=== PATIENT | male | born 1990 | race Caucasian/White ===

== ENCOUNTER 2021-09-01 10:25 | Day surgery (SDC) | payer BC ==
[2021-09-01] MEDS ORDERED: BUPIVACAINE 0.5% VIAL IJ ONE (10:26)
[2021-09-01] MEDS ORDERED: Depo-Medrol 40 MG/ML IM ONE (10:26)
[2021-09-01] MEDS ORDERED: Lactated Ringers 1,000 ML IV ONE (12:04)
[2021-09-01] MEDS ORDERED: DIPRIVAN 200 MG/20 ML IV ONE (12:07)
--- NOTE | 2021-09-01 14:02 | XRAY ---
Indication: Bilateral L4-S1 MBB. Intraoperative fluoroscopy provided for 8 seconds. Single digital spot image submitted for interpretation demonstrates posterior needle tips projecting over the expected left and right L4-S1 nerve roots. Correlate with intraoperative findings/report.
--- NOTE | 2021-09-01 14:41 | XRAY ---
8 seconds fluoroscopy time in surgery for bilateral L4-S1 MBB
== END 2021-09-01 12:32 | disposition home or self-care (01) ==
LOC: SDC-PAIN 10:25
PROVIDERS: ATTEND Psychiatry & Neurology Pain Medicine
DX: M47.816 Spondylosis without myelopathy or radiculopathy, lumbar region (principal); Z79.899 Other long term (current) drug therapy
CPT/HCPCS: 64493; 64494; 72020; 77002; J1030; J2704; Q9966

== ENCOUNTER 2021-09-29 13:23 | Day surgery (SDC) | payer BC ==
[2021-09-29] MEDS ORDERED: Depo-Medrol 40 MG/ML IM ONE (13:24)
[2021-09-29] MEDS ORDERED: Sodium Chloride 0.9(Preservative Free) 10 ML IJ ONE (13:24)
[2021-09-29] MEDS ORDERED: DIPRIVAN 200 MG/20 ML IV ONE (16:16)
[2021-09-29] MEDS ORDERED: Lactated Ringers 1,000 ML IV ONE (16:24)
--- NOTE | 2021-09-29 16:44 | XRAY ---
Indication: Right L4-S1 transforaminal JAMIL. Intraoperative fluoroscopy provided for 34 seconds. 3 digital spot images submitted for interpretation demonstrates posterior needle tips projecting over the expected right L4 and L5 nerve roots. Small amount of contrast injected for needle tip placement. Correlate with intraoperative findings/report.
--- NOTE | 2021-09-29 17:01 | XRAY ---
34 seconds fluoroscopy time in surgery for right L4-S1 transforaminal JAMIL.
== END 2021-09-29 16:30 | disposition home or self-care (01) ==
LOC: SDC-PAIN 13:23
PROVIDERS: ATTEND Psychiatry & Neurology Pain Medicine
DX: M54.16 Radiculopathy, lumbar region (principal); Z79.899 Other long term (current) drug therapy
CPT/HCPCS: 64483; 64484; 72100; 77003; J1030; J2704

== ENCOUNTER 2023-04-19 06:47 | Day surgery (SDC) | payer BC ==
[2023-04-19] MEDS ORDERED: Depo-Medrol 40 MG/ML IM ONE (06:48)
[2023-04-19] MEDS ORDERED: Sodium Chloride 0.9(Preservative Free) 10 ML IJ ONE (06:48)
[2023-04-19] MEDS ORDERED: DIPRIVAN 200 MG/20 ML IV ONE ×2 (08:14→08:18)
--- NOTE | 2023-04-19 13:54 | XRAY ---
Indication: Right L4-S1 transforaminal JAMIL. Intraoperative fluoroscopy provided for 29 seconds. 5 digital spot images submitted for interpretation demonstrates posterior needle tips projecting over the expected right L4 and L5 nerve roots. Small amount of contrast injected for needle tip placement. Correlate with intraoperative findings/report.
--- NOTE | 2023-04-19 13:54 | XRAY ---
29 seconds of fluoroscopy was used in surgery for a right L4-S1 transforaminal JAMIL.
[2023-04-19] MEDS ORDERED: Lactated Ringers 1,000 ML IV ONE (14:56)
== END 2023-04-19 08:43 | disposition home or self-care (01) ==
LOC: SDC-PAIN 06:47
PROVIDERS: ATTEND Psychiatry & Neurology Pain Medicine
DX: M54.16 Radiculopathy, lumbar region (principal); Z79.899 Other long term (current) drug therapy
CPT/HCPCS: 64483; 64484; 72100; 77003; J1030; J2704; Q9966

== ENCOUNTER 2023-05-10 08:55 | Day surgery (SDC) | payer BC ==
[2023-05-10] MEDS ORDERED: LIDOCAINE HCL 1% 50 MG/5 ML VL PF IJ ONE (08:56)
[2023-05-10] MEDS ORDERED: Depo-Medrol 40 MG/ML IM ONE (08:56)
[2023-05-10] MEDS ORDERED: DIPRIVAN 200 MG/20 ML IV ONE (11:12)
[2023-05-10] MEDS ORDERED: Lactated Ringers 1,000 ML IV ONE (12:10)
--- NOTE | 2023-05-10 12:28 | XRAY ---
Indication: Right piriformis injection. Intraoperative fluoroscopy provided for 14 seconds. Single digital spot images submitted for interpretation demonstrates posterior needle tip projecting over right piriformis. Small amount of contrast injected for needle tip placement. Correlate with intraoperative findings/report.
--- NOTE | 2023-05-10 12:29 | XRAY ---
14 seconds of fluoroscopy was used in surgery for a right piriformis injection.
== END 2023-05-10 11:35 | disposition home or self-care (01) ==
LOC: SDC-PAIN 08:55
PROVIDERS: ATTEND Psychiatry & Neurology Pain Medicine
DX: M79.18 Myalgia, other site (principal); Z79.899 Other long term (current) drug therapy
CPT/HCPCS: 20552; 72170; 77002; J1030; J2001; J2704; Q9966